=== PATIENT | male | born 1995 ===

== ENCOUNTER 2017-01-17 01:01 | Emergency (ER) | payer SELFPAY ==
[2017-01-17 01:18] VITALS: BP 134/72; PULSE 77; RESP 16; TEMP 98.1; O2SAT 98
[2017-01-17] MEDS ORDERED: Naproxen 500 MG TAB PO ONE ×2 (01:46→02:33)
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
--- NOTE | 2017-01-17 09:49 | RAD ---
PROCEDURE: Right elbow Radiographs. HISTORY: trauma COMPARISON: None. FINDINGS: BONES: No radiographically apparent fracture. However, there is mild displacement of anterior fat pad which could represent a joint effusion. Underlying radio occult fracture cannot be excluded JOINTS: Normal. No dislocation. SOFT TISSUES: Normal. OTHER FINDINGS: None. IMPRESSION: No radiographically apparent fracture. However, there is mild displacement of anterior fat pad which could represent a joint effusion. Underlying radio occult fracture cannot be excluded
== END 2017-01-17 03:41 | disposition home or self-care (01) ==
LOC: H.ER 01:01
DX: S59.911A Unspecified injury of right forearm, initial encounter (principal); W19.XXXA Unspecified fall, initial encounter; Y92.89 Other specified places as the place of occurrence of the external cause

== ENCOUNTER 2017-12-09 12:41 | Emergency (ER) | payer MEDICAID, OTHER ==
[2017-12-09 13:06] VITALS: BP 121/76; PULSE 78; RESP 18; TEMP 98; O2SAT 99
--- NOTE | 2017-12-09 13:21 | ED PDOC ---
HPI: General Adult Time Seen by Provider: 12/09/17 13:00 Chief Complaint (Nursing): Headache Chief Complaint (Provider): Headache History Per: Patient History/Exam Limitations: no limitations Onset/Duration Of Symptoms: Days (x2 weeks) Current Symptoms Are (Timing): Still Present Additional Complaint(s): 22 y/o male with no significant pmhx presents to the ED for evaluation of posterior head pain x2 weeks. Patient states he noticed a lump on the back of his head 2 weeks ago, but is unsure of when it first appeared. He reports the lump has been growing in size and describes a sharp pain when touching it, as well as a persistent headache. He also reports taking 10mg Percocet with no relief of pain. Denies any direct injury or trauma to his head. He denies nausea, vomiting, vision changes, fever or chills. PMD: None Past Medical History Reviewed: Historical Data, Nursing Documentation, Vital Signs Vital Signs: Last Vital Signs Temp 98 F 12/09/17 13:04 Pulse 78 12/09/17 13:04 Resp 18 12/09/17 13:04 BP 121/76 12/09/17 13:04 Pulse Ox 99 12/09/17 13:56 - Medical History PMH: No Chronic Diseases - Surgical History Surgical History: No Surg Hx - Family History Family History: States: No Known Family Hx - Living Arrangements Living Arrangements: With Family - Social History Current smoker - smoking cessation education provided: Yes (occasionally) Alcohol: Social Drugs: Denies - Home Medications Home Medications: Ambulatory Orders Medication Instructions Recorded Ibuprofen 600 mg PO Q6H PRN #15 tab 06/08/15 Cephalexin [Keflex] 500 mg PO QID #20 cap 06/23/15 oxyCODONE/Acetaminophen [Percocet 1 ea PO Q6 PRN #15 tab 06/23/15 5/325 mg Tab] Cyclobenzaprine [Cyclobenzaprine 10 mg PO Q8 PRN #30 tab 10/07/15 HCl] Naproxen [Naprosyn] 500 mg PO BID PRN #30 tab 10/07/15 Naproxen [Naprosyn] 500 mg PO BID #20 tab 12/09/17 - Allergies Allergies/Adverse Reactions: Allergies Allergy/AdvReac Type Severity Reaction Status Date / Time No Known Allergies Allergy Verified 01/17/17 01:15 Review of Systems ROS Statement: Except As Marked, All Systems Reviewed And Found Negative Constitutional: Negative for: Fever, Chills Eyes: Negative for: Vision Change Gastrointestinal: Negative for: Nausea, Vomiting Skin: Positive for: Lesions (cyst on right occipital scalp) Neurological: Positive for: Headache. Negative for: Dizziness Physical Exam - Reviewed Nursing Documentation Reviewed: Yes Vital Signs Reviewed: Yes - Physical Exam Appears: Positive for: Well, Non-toxic, No Acute Distress Head Exam: Negative for: NORMAL INSPECTION (3 cm fluctuant cyst to right occipital scalp, no external erythema, no evidence of infection, mild tenderness to palpation) Skin: Positive for: Normal Color. Negative for: Rash Eye Exam: Positive for: Normal appearance Neck: Positive for: Normal. Negative for: Pain On Movement Of Neck Cardiovascular/Chest: Positive for: Regular Rate, Rhythm Respiratory: Positive for: Normal Breath Sounds Extremity: Positive for: Normal ROM Neurologic/Psych: Positive for: Alert, Oriented - ECG O2 Sat by Pulse Oximetry: 99 (RA) Pulse Ox Interpretation: Normal - Other Rad Ct head X-Ray: Read By Radiologist X-Ray Interpretation: see below Medical Decision Making Medical Decision Makin:09 Initial Impression: 22 y/o male with cyst on scalp Plan: --CT Head w/o contrast --Toradol 30mg IM --Tylenol 975mg PO --Reevaluation CT HEAD WITHOUT CONTRAST. IMPRESSION: 1. Normal CT brain imaging as per above. 2. 3.0 cm occipital scalp lipoma identified. Patient is aware of CT results. All questions answered. He was given rx naprosyn and copy of CT report. Patient was referred to clinic and surgery video production specialist for follow up. Scribe Attestation: Documented by Castro Burris, acting as a scribe for Citlali Basurto PA-C. Provider Scribe Attestation: All medical record entries made by the Scribe were at my direction and personally dictated by me. I have reviewed the chart and agree that the record accurately reflects my personal performance of the history, physical exam, medical decision making, and the department course for this patient. I have also personally directed, reviewed, and agree with the discharge instructions and disposition. Disposition - Clinical Impression Clinical Impression: Lipoma of scalp - Patient ED Disposition Is Patient to be Admitted: No Counseled Patient/Family Regarding: Studies Performed, Diagnosis, Need For Followup, Rx Given - Disposition Referrals: [facility] [Outside] Ambrose Wren MD [Staff Provider] - Disposition: Routine/Home Disposition Time: 14:05 Condition: STABLE Additional Instructions: Take rx meds as directed as needed for pain. Follow up GANESH with surgeon or with clinic. Prescriptions: Naproxen [Naprosyn] 500 mg PO BID #20 tab Instructions: Lipoma Forms: [employer] (Kiswahili)
--- NOTE | 2017-12-09 13:41 | CT ---
PROCEDURE: CT HEAD WITHOUT CONTRAST. HISTORY: cyst to scalp, right occipital COMPARISON: None available. TECHNIQUE: Axial computed tomography images were obtained through the head/brain without intravenous contrast. Radiation dose: Total exam DLP = 858.60 mGy-cm. This CT exam was performed using one or more of the following dose reduction techniques: Automated exposure control, adjustment of the mA and/or kV according to patient size, and/or use of iterative reconstruction technique. FINDINGS: HEMORRHAGE: No intracranial hemorrhage. BRAIN: Normal medina-white matter differentiation and density are appreciated throughout the cerebrum and cerebellum with the brainstem appearing unremarkable as well. There is no mass effect. There is no suspicious extra-axial fluid collection and the midline brain anatomy appears diffusely unremarkable. VENTRICLES: Unremarkable. No hydrocephalus. CALVARIUM: No destructive bony lesion or displaced fracture identified including through the skullbase. However, in the scalp overlying the midline/right parasagittal occipital region at the level of the external occipital protuberance and immediately inferior to it is a subcutaneous low-density lesion measuring 2.6 x 1.8 x 3.0 cm (transverse by anteroposterior by superoinferior dimensions). It is surrounded by a thin rim of soft tissue and is well-circumscribed. Its density measures -104 Hounsfield units compatible with a scalp lipoma. PARANASAL SINUSES: Multifocal mild ethmoid sinus disease bilaterally. MASTOID AIR CELLS: Unremarkable as visualized. No inflammatory changes. OTHER FINDINGS: None. IMPRESSION: 1. Normal CT brain imaging as per above. 2. 3.0 cm occipital scalp lipoma identified.
== END 2017-12-09 14:30 | disposition home or self-care (01) ==
LOC: H.ER 12:41
DX: D17.0 Benign lipomatous neoplasm of skin and subcutaneous tissue of head, face and neck (principal)
CPT/HCPCS: 70450; 96372; 99285; J1885

== ENCOUNTER 2018-09-11 03:09 | Emergency (ER) | payer OTHER ==
[2018-09-11 03:18] VITALS: RESP 16
[2018-09-11 04:26] LABS: BASO % 0.2 % (0.0-2.0); EOS % 0.1 % (0.0-4.0); HEMOGLOBIN 15.2 g/dL (12.0-18.0); LYMPH % 6.1 % (20.0-40.0); MEAN CELL VOLUME 87.1 fl (80.0-94.0); MEAN CORPUSCULAR HEMOGLOBIN 28.8 pg (27.0-31.0); MEAN PLATELET VOLUME 7.8 fl (7.2-11.7); MONO # 1.3 K/uL (0.0-0.8); MONO % 7.7 % (0.0-10.0); NEUT # 14.8 K/uL (1.8-7.0); NEUT % 85.9 % (50.0-75.0); NRBC % 0.2 % (0.0-0.0); PLATELET COUNT 326 K/uL (130-400); RBC 5.27 Mil/uL (4.40-5.90); WHITE BLOOD COUNT 17.2 K/uL (4.8-10.8)
[2018-09-11 04:31] LABS: INR 1.2; PROTHROMBIN TIME 13.6 Seconds (9.8-13.1)
[2018-09-11 04:34] LABS: BLOOD UREA NITROGEN 13 mg/dl (9-20); CALCIUM 9.2 mg/dL (8.4-10.2); GFR NON-AFRICAN AMERICAN > 60
[2018-09-11 04:53] LABS: PARTIAL THROMBOPLASTIN TIME 32.9 Seconds (25.6-37.1)
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
[2018-09-11 05:23] LABS: ANISOCYTOSIS SLIGHT; BANDS 6 % (0-2); LYMPHOCYTE 14 % (20-50); MONOCYTE 3 % (0-10); NEUTROPHIL 77 % (42-75); PLATELET ESTIMATE NORMAL (NORMAL); TOTAL CELLS COUNTED 100
[2018-09-11 05:24] LABS: LARGE PLATELETS PRESENT
[2018-09-11 05:39] VITALS: BP 122/87; PULSE 91; TEMP 98
[2018-09-11 06:43] VITALS: O2SAT 97
--- NOTE | 2018-09-11 08:51 | RAD ---
Date of service: 09/11/2018 PROCEDURE: Right Knee Radiographs. HISTORY: right knee pain fall COMPARISON: Comparison the prior study the 10/07/2015. FINDINGS: BONES: Normal. No fracture. JOINTS: Normal. No osteoarthritis. JOINT EFFUSION: Questionable tiny joint effusion. OTHER FINDINGS: None. IMPRESSION: Normal radiographs of the right knee.
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
--- NOTE | 2018-09-11 15:41 | RAD ---
Date of service: 09/11/2018 PROCEDURE: Radiographs of the Chest and Right Ribs. HISTORY: right rib pain injury COMPARISON: None available. TECHNIQUE: Frontal radiograph of the chest and multiple oblique radiographs of the right ribs were obtained. FINDINGS: RIGHT RIBS: No fracture or focal lesion visualized. LUNGS: Clear. PLEURA: No pneumothorax or pleural fluid. CARDIOVASCULAR: Normal cardiac size. No pulmonary vascular congestion. No aortic atherosclerotic calcification present OTHER FINDINGS: None. IMPRESSION: Unremarkable radiographs of the chest and right ribs. No right rib fracture.
== END 2018-09-11 05:39 | disposition home or self-care (01) ==
LOC: H.ER 03:09
DX: S29.9XXA Unspecified injury of thorax, initial encounter (principal); S83.8X1A Sprain of other specified parts of right knee, initial encounter; Y04.0XXA Assault by unarmed brawl or fight, initial encounter; Y92.89 Other specified places as the place of occurrence of the external cause
CPT/HCPCS: 71101; 71250; 73562; 74176; 80048; 80320; 85025; 85610; 85730; 86850; 86900; 96374; 99283; J1885